=== PATIENT | male | born 1975 | race Native Hawaiian/Other Pacific Islander ===

== ENCOUNTER 2017-02-17 19:10 | Inpatient (IN) | payer OTHER ==
[~2017-02-17 19:10] MED LIST: NOCURR
[2017-02-17 20:53] VITALS: BP 148/95
[2017-02-17] MEDS ORDERED: ONDANSETRON HCL 4 MG/2 ML VIAL IVP PRN (21:15)
[2017-02-17] MEDS ORDERED: CloNIDine HCL 0.1 MG TABLET PO PRN (21:15)
[2017-02-17] MEDS ORDERED: LORazepam 2 MG/ML VIAL IVP PRN (21:15)
[2017-02-17] MEDS ORDERED: OxyCODONE HCL/ACETAMINOPHEN 5-325 MG TABLET PO PRN (21:15)
[2017-02-17] MEDS ORDERED: MAGNESIUM HYDROXIDE SUSPENSION 30 ML UDCUP PO PRN (21:15)
[2017-02-17] MEDS ORDERED: ACETAMINOPHEN 325 MG TABLET PO PRN (21:15)
[2017-02-18] VITALS: BP 150/87
[2017-02-18 04:57] VITALS: BP 153/96
[2017-02-18 06:23] LABS: BASOPHILS % (AUTO) 0.6 % (0.0-2.0); EOSINOPHILS % (AUTO) 3.2 % (1.0-6.0); HEMATOCRIT 44.3 % (41-53); HEMOGLOBIN 14.2 g/dL (13.5-17.5); LYMPHOCYTES # (AUTO) 1.5 K/uL (1.0-4.8); LYMPHOCYTES % (AUTO) 21.9 % (22.0-44.0); MEAN CORPUSCULAR HEMOGLOBIN 23.1 pg (26.0-34.0); MEAN CORPUSCULAR HGB CONC 32.1 G/dL (31.0-37.0); MEAN CORPUSCULAR VOLUME 72 fL (80-100); MONOCYTES # (AUTO) 0.7 K/uL (0.1-1.0); MONOCYTES % (AUTO) 10.5 % (2.0-9.0); NEUTROPHILS # (AUTO) 4.4 K/uL (1.8-7.7); NEUTROPHILS % (AUTO) 63.8 % (40.0-70.0); PLATELET COUNT (AUTO) 236 K/uL (150-450); RED BLOOD CELL COUNT(AUTO) 6.14 MIL/uL (4.50-5.90); RED CELL DISTRIBUTION WIDTH 13.5 % (11.5-14.5); WHITE BLOOD COUNT (AUTO) 6.9 K/uL (4.5-11.0)
[2017-02-18 06:57] LABS: ALANINE AMINOTRANSFERASE 35 U/L (12-78); ALBUMIN 3.8 g/dL (3.4-5.0); ANION GAP 8 mmol/L (8-16); ASPARTATE AMINOTRANSFERASE 22 U/L (15-37); BILIRUBIN,TOTAL 1.1 mg/dL (0.1-1.0); CALCIUM, TOTAL 8.9 mg/dL (8.8-10.5); CARBON DIOXIDE 27 mmol/L (22-29); CHLORIDE 104 mmol/L (98-107); CREATININE 0.92 mg/dL (0.60-1.30); GLOMERULAR FILTR. RATE CALC > 60 mL/min (>60); POTASSIUM 4.1 mmol/L (3.5-5.1); SODIUM SERUM 139 mmol/L (136-145); TOTAL PROTEIN, SERUM 7.3 g/dL (6.4-8.2); UREA NITROGEN, BLOOD 22 mg/dL (7-18)
[2017-02-18 08:02] VITALS: BP 138/87
[2017-02-18 08:25] LABS: RBC MORPHOLOGY COMMENT ABNORMAL RBC MORPH
[2017-02-18] MEDS ORDERED: PANTOPRAZOLE SODIUM 40 MG DR TABLET PO SCH (09:00)
[2017-02-18] MEDS: DOCUSATE SODIUM 100 MG CAPSULE PO SCH ×2 (09:00→20:28)
[2017-02-18] MEDS ORDERED: AmLODIPine BESYLATE 5 MG TABLET PO SCH (09:00)
[2017-02-18] MEDS: METOPROLOL TARTRATE 25 MG TABLET PO SCH ×2 (09:31→20:28)
[2017-02-18] MEDS: LevETIRAcetam 500 MG TABLET PO SCH ×2 (09:31→20:28)
[2017-02-18 11:36] VITALS: BP 138/96
[2017-02-18 16:46] VITALS: BP 112/70
[2017-02-18 19:47] VITALS: BP 122/73
== END 2017-02-18 22:30 | DRG 66 ==
LOC: 5N 19:10
PROVIDERS: ADMIT Internal Medicine; ATTEND Internal Medicine
DX: I61.9 Nontraumatic intracerebral hemorrhage, unspecified (principal); I10 Essential (primary) hypertension
CPT/HCPCS: 87081; 92523; 97112; 97162; 97166; 97535

== ENCOUNTER 2017-02-18 22:45 | Inpatient (IN) | payer OTHER ==
[~2017-02-18] VITALS: Ht 177.8 cm; Wt 86.2 kg
[2017-02-18 23:00] VITALS: BP 136/86
[2017-02-18] MEDS ORDERED: CloNIDine HCL 0.1 MG TABLET PO PRN (23:45)
[2017-02-18] MEDS ORDERED: DOCUSATE SODIUM 283 MG/5 ML MINI-ENEMA PR PRN (23:45)
[2017-02-18] MEDS ORDERED: MAGNESIUM HYDROXIDE SUSPENSION 30 ML UDCUP PO PRN (23:45)
[2017-02-18] MEDS ORDERED: ONDANSETRON HCL 4 MG TABLET PO PRN (23:45)
[2017-02-18] MEDS ORDERED: ACETAMINOPHEN 325 MG TABLET PO PRN (23:45)
[2017-02-18] MEDS ORDERED: OxyCODONE HCL/ACETAMINOPHEN 5-325 MG TABLET PO PRN (23:45)
[2017-02-18] MEDS ORDERED: LORazepam 2 MG/ML VIAL IVP PRN (23:45)
[2017-02-19 01:43] LABS: APPEARANCE,URINE CLEAR (CLEAR); GLUCOSE, URINE (UA) NEGATIVE (NEGATIVE); KETONES,URINE NEGATIVE (NEGATIVE); LEUKOCYTE ESTERASE ,URINE NEGATIVE (NEGATIVE); OCCULT BLOOD,URINE NEGATIVE (NEGATIVE); PROTEIN,URINE NEGATIVE (NEGATIVE)
[2017-02-19 01:48] LABS: ADD UA MICROSCOPIC NO
[2017-02-19 07:02] LABS: BASOPHILS % (AUTO) 0.4 % (0.0-2.0); EOSINOPHILS % (AUTO) 2.3 % (1.0-6.0); HEMATOCRIT 42.8 % (41-53); HEMOGLOBIN 13.8 g/dL (13.5-17.5); LYMPHOCYTES # (AUTO) 1.9 K/uL (1.0-4.8); LYMPHOCYTES % (AUTO) 26.7 % (22.0-44.0); MEAN CORPUSCULAR HEMOGLOBIN 23.1 pg (26.0-34.0); MEAN CORPUSCULAR HGB CONC 32.1 G/dL (31.0-37.0); MEAN CORPUSCULAR VOLUME 72 fL (80-100); MONOCYTES # (AUTO) 0.5 K/uL (0.1-1.0); MONOCYTES % (AUTO) 7.7 % (2.0-9.0); NEUTROPHILS # (AUTO) 4.4 K/uL (1.8-7.7); NEUTROPHILS % (AUTO) 62.9 % (40.0-70.0); PLATELET COUNT (AUTO) 248 K/uL (150-450); RED BLOOD CELL COUNT(AUTO) 5.96 MIL/uL (4.50-5.90); RED CELL DISTRIBUTION WIDTH 14.1 % (11.5-14.5)
[2017-02-19 07:19] LABS: ALANINE AMINOTRANSFERASE 40 U/L (12-78); ALBUMIN 3.7 g/dL (3.4-5.0); ANION GAP 7 mmol/L (8-16); ASPARTATE AMINOTRANSFERASE 22 U/L (15-37); BILIRUBIN,TOTAL 0.6 mg/dL (0.1-1.0); CALCIUM, TOTAL 8.8 mg/dL (8.8-10.5); CARBON DIOXIDE 28 mmol/L (22-29); CHLORIDE 107 mmol/L (98-107); CREATININE 0.99 mg/dL (0.60-1.30); GLOMERULAR FILTR. RATE CALC > 60 mL/min (>60); POTASSIUM 4.2 mmol/L (3.5-5.1); SODIUM SERUM 142 mmol/L (136-145); TOTAL PROTEIN, SERUM 7.2 g/dL (6.4-8.2); UREA NITROGEN, BLOOD 27 mg/dL (7-18)
[2017-02-19 07:45] VITALS: BP 138/80
[2017-02-19 08:31] LABS: RBC MORPHOLOGY COMMENT ABNORMAL RBC MORPH
[2017-02-19] MEDS: AmLODIPine BESYLATE 5 MG TABLET PO SCH (09:48)
[2017-02-19] MEDS: LevETIRAcetam 500 MG TABLET PO SCH ×2 (09:48→21:28)
[2017-02-19] MEDS: PANTOPRAZOLE SODIUM 40 MG DR TABLET PO SCH (09:48)
[2017-02-19] MEDS: METOPROLOL TARTRATE 25 MG TABLET PO SCH ×2 (09:48→21:28)
[2017-02-19] MEDS: DOCUSATE SODIUM 100 MG CAPSULE PO SCH ×2 (09:48→21:28)
[2017-02-19 16:13] VITALS: BP 135/73
[2017-02-19] MEDS ORDERED: SENNA 187 MG TABLET PO SCH (21:00)
[2017-02-19 21:26] VITALS: BP 132/66
[2017-02-19] MEDS: 0.9% SODIUM CHLORIDE 10 ML SYRINGE IVP SCH (23:17)
[2017-02-20] VITALS: BP 146/76
[2017-02-20] MEDS: 0.9% SODIUM CHLORIDE 10 ML SYRINGE IVP SCH (08:00)
[2017-02-20 09:09] VITALS: BP 136/74
[2017-02-20] MEDS: LevETIRAcetam 500 MG TABLET PO SCH ×2 (09:34→21:29)
[2017-02-20] MEDS: AmLODIPine BESYLATE 5 MG TABLET PO SCH (09:34)
[2017-02-20] MEDS: PANTOPRAZOLE SODIUM 40 MG DR TABLET PO SCH (09:34)
[2017-02-20] MEDS: DOCUSATE SODIUM 250 MG CAPSULE PO SCH ×2 (09:34→21:29)
[2017-02-20] MEDS: METOPROLOL TARTRATE 25 MG TABLET PO SCH ×2 (09:34→21:29)
[2017-02-20 16:03] VITALS: BP 135/82
[2017-02-20 21:28] VITALS: BP 140/76
[2017-02-20] MEDS: SENNA 187 MG TABLET PO SCH (21:29)
[2017-02-20 23:35] VITALS: BP 109/71
[2017-02-21 04:15] VITALS: BP 138/76
[2017-02-21 07:45] VITALS: BP 143/67
[2017-02-21 08:01] VITALS: BP 143/67
[2017-02-21] MEDS: AmLODIPine BESYLATE 5 MG TABLET PO SCH (08:44)
[2017-02-21] MEDS: LevETIRAcetam 500 MG TABLET PO SCH ×2 (08:44→20:36)
[2017-02-21] MEDS: METOPROLOL TARTRATE 25 MG TABLET PO SCH ×2 (08:44→20:36)
[2017-02-21] MEDS: DOCUSATE SODIUM 250 MG CAPSULE PO SCH ×2 (08:44→20:36)
[2017-02-21] MEDS: PANTOPRAZOLE SODIUM 40 MG DR TABLET PO SCH (08:44)
[2017-02-21 16:26] VITALS: BP 151/87
[2017-02-21 20:34] VITALS: BP 151/77
[2017-02-21] MEDS: SENNA 187 MG TABLET PO SCH (20:36)
[2017-02-21 23:15] VITALS: BP 132/75
[2017-02-22 08:30] VITALS: BP 151/88
[2017-02-22] MEDS: LevETIRAcetam 500 MG TABLET PO SCH ×2 (08:50→20:44)
[2017-02-22] MEDS: DOCUSATE SODIUM 250 MG CAPSULE PO SCH ×2 (08:50→20:44)
[2017-02-22] MEDS: AmLODIPine BESYLATE 5 MG TABLET PO SCH (08:50)
[2017-02-22] MEDS: METOPROLOL TARTRATE 25 MG TABLET PO SCH ×2 (08:50→20:43)
[2017-02-22] MEDS: PANTOPRAZOLE SODIUM 40 MG DR TABLET PO SCH (08:51)
[2017-02-22 16:20] VITALS: BP 145/60
[2017-02-22 16:25] VITALS: BP 147/87
[2017-02-22 20:21] VITALS: BP 163/95
[2017-02-22] MEDS: SENNA 187 MG TABLET PO SCH (20:44)
[2017-02-22 23:44] VITALS: BP 148/83
[2017-02-23 08:12] VITALS: BP 161/86
[2017-02-23] MEDS: AmLODIPine BESYLATE 5 MG TABLET PO SCH (08:23)
[2017-02-23] MEDS: DOCUSATE SODIUM 250 MG CAPSULE PO SCH ×2 (08:23→20:28)
[2017-02-23] MEDS: LevETIRAcetam 500 MG TABLET PO SCH ×2 (08:23→20:29)
[2017-02-23] MEDS: PANTOPRAZOLE SODIUM 40 MG DR TABLET PO SCH (08:23)
[2017-02-23] MEDS: METOPROLOL TARTRATE 25 MG TABLET PO SCH ×2 (08:23→20:29)
[2017-02-23 10:40] VITALS: BP 141/80
[2017-02-23 15:16] VITALS: BP 158/81
[2017-02-23 20:22] VITALS: BP 157/96
[2017-02-23] MEDS: SENNA 187 MG TABLET PO SCH (20:28)
[2017-02-23 23:34] VITALS: BP 147/79
[2017-02-24 07:53] VITALS: BP 140/82
[2017-02-24] MEDS: METOPROLOL TARTRATE 25 MG TABLET PO SCH ×2 (10:01→21:59)
[2017-02-24] MEDS: DOCUSATE SODIUM 250 MG CAPSULE PO SCH (10:01)
[2017-02-24] MEDS: AmLODIPine BESYLATE 5 MG TABLET PO SCH (10:01)
[2017-02-24] MEDS: PANTOPRAZOLE SODIUM 40 MG DR TABLET PO SCH (10:01)
[2017-02-24 16:02] VITALS: BP 134/84
[2017-02-24 21:45] VITALS: BP 152/98
[2017-02-24] MEDS: MIRTAZAPINE 15 MG TABLET PO SCH (21:59)
[2017-02-24] MEDS: SENNA 187 MG TABLET PO SCH (21:59)
[2017-02-24 23:38] VITALS: BP 145/77
[2017-02-25 08:30] VITALS: BP 150/88
[2017-02-25] MEDS: DOCUSATE SODIUM 250 MG CAPSULE PO SCH (08:48)
[2017-02-25] MEDS: AmLODIPine BESYLATE 5 MG TABLET PO SCH (08:48)
[2017-02-25] MEDS: FAMOTIDINE 20 MG TABLET PO SCH (08:48)
[2017-02-25] MEDS: METOPROLOL TARTRATE 25 MG TABLET PO SCH ×2 (09:01→21:04)
[2017-02-25 15:30] VITALS: BP 117/64
[2017-02-25 20:55] VITALS: BP 140/73
[2017-02-25] MEDS: MIRTAZAPINE 15 MG TABLET PO SCH (21:04)
[2017-02-25] MEDS: SENNA 187 MG TABLET PO SCH (21:04)
[2017-02-25 23:43] VITALS: BP 143/79
[2017-02-26 07:01] VITALS: BP 133/86
[2017-02-26] MEDS: FAMOTIDINE 20 MG TABLET PO SCH (07:45)
[2017-02-26] MEDS: DOCUSATE SODIUM 250 MG CAPSULE PO SCH (07:45)
[2017-02-26] MEDS: AmLODIPine BESYLATE 5 MG TABLET PO SCH (07:45)
[2017-02-26] MEDS: METOPROLOL TARTRATE 25 MG TABLET PO SCH ×2 (07:45→20:49)
[2017-02-26 15:56] VITALS: BP 141/94
[2017-02-26 20:48] VITALS: BP 143/80
[2017-02-26] MEDS: SENNA 187 MG TABLET PO SCH (20:49)
[2017-02-26] MEDS: MIRTAZAPINE 15 MG TABLET PO SCH (20:50)
[2017-02-27 05:00] VITALS: BP 161/82
[2017-02-27 06:00] VITALS: BP 147/91
[2017-02-27 07:12] VITALS: BP 149/94
[2017-02-27] MEDS: METOPROLOL TARTRATE 25 MG TABLET PO SCH ×2 (07:33→20:19)
[2017-02-27] MEDS: AmLODIPine BESYLATE 5 MG TABLET PO SCH (07:34)
[2017-02-27] MEDS: DOCUSATE SODIUM 250 MG CAPSULE PO SCH (07:34)
[2017-02-27] MEDS: FAMOTIDINE 20 MG TABLET PO SCH (07:34)
[2017-02-27 15:18] VITALS: BP 135/68
[2017-02-27 20:18] VITALS: BP 142/74
[2017-02-27] MEDS: MIRTAZAPINE 15 MG TABLET PO SCH (20:19)
[2017-02-27] MEDS: SENNA 187 MG TABLET PO SCH (20:19)
[2017-02-27 23:15] VITALS: BP 140/75
[2017-02-28 08:30] VITALS: BP 149/91
[2017-02-28] MEDS: DOCUSATE SODIUM 250 MG CAPSULE PO SCH (09:02)
[2017-02-28] MEDS: FAMOTIDINE 20 MG TABLET PO SCH (09:02)
[2017-02-28] MEDS: METOPROLOL TARTRATE 25 MG TABLET PO SCH ×2 (09:02→20:47)
[2017-02-28] MEDS: AmLODIPine BESYLATE 5 MG TABLET PO SCH (09:02)
[2017-02-28 15:01] VITALS: BP 153/92
[2017-02-28 20:40] VITALS: BP 145/99
[2017-02-28] MEDS: MIRTAZAPINE 15 MG TABLET PO SCH (20:47)
[2017-02-28] MEDS: SENNA 187 MG TABLET PO SCH (20:47)
[2017-02-28 23:30] VITALS: BP 144/91
[2017-03-01 07:13] VITALS: BP 137/66
[2017-03-01] MEDS: METOPROLOL TARTRATE 25 MG TABLET PO SCH ×2 (08:17→20:25)
[2017-03-01] MEDS: FAMOTIDINE 20 MG TABLET PO SCH (08:17)
[2017-03-01] MEDS: DOCUSATE SODIUM 250 MG CAPSULE PO SCH (08:17)
[2017-03-01] MEDS: AmLODIPine BESYLATE 5 MG TABLET PO SCH (08:17)
[2017-03-01 15:16] VITALS: BP 134/76
[2017-03-01 20:14] VITALS: BP 158/94
[2017-03-01] MEDS: SENNA 187 MG TABLET PO SCH (20:25)
[2017-03-01] MEDS: MIRTAZAPINE 15 MG TABLET PO SCH (20:25)
[2017-03-02 06:00] VITALS: BP 142/74
[2017-03-02 08:30] VITALS: BP 146/87
[2017-03-02] MEDS: METOPROLOL TARTRATE 25 MG TABLET PO SCH ×2 (08:50→21:20)
[2017-03-02] MEDS: AmLODIPine BESYLATE 5 MG TABLET PO SCH (08:50)
[2017-03-02] MEDS: FAMOTIDINE 20 MG TABLET PO SCH (08:50)
[2017-03-02] MEDS: DOCUSATE SODIUM 250 MG CAPSULE PO SCH (08:50)
[2017-03-02 16:20] VITALS: BP 133/95
[2017-03-02 21:13] VITALS: BP 141/62
[2017-03-02] MEDS: SENNA 187 MG TABLET PO SCH (21:19)
[2017-03-02] MEDS: MIRTAZAPINE 15 MG TABLET PO SCH (21:20)
[2017-03-03] VITALS: BP 134/74
[2017-03-03 07:12] VITALS: BP 139/88
[2017-03-03] MEDS: AmLODIPine BESYLATE 10 MG TABLET PO SCH (07:59)
[2017-03-03] MEDS: METOPROLOL TARTRATE 25 MG TABLET PO SCH ×2 (07:59→19:56)
[2017-03-03] MEDS: DOCUSATE SODIUM 250 MG CAPSULE PO SCH (07:59)
[2017-03-03] MEDS: FAMOTIDINE 20 MG TABLET PO SCH (07:59)
[2017-03-03 15:45] VITALS: BP 141/83
[2017-03-03] MEDS: SENNA 187 MG TABLET PO SCH (19:56)
[2017-03-03] MEDS: MIRTAZAPINE 15 MG TABLET PO SCH (19:56)
[2017-03-04 05:00] VITALS: BP 136/54
[2017-03-04 08:00] VITALS: BP 149/97
[2017-03-04] MEDS: DOCUSATE SODIUM 250 MG CAPSULE PO SCH (08:09)
[2017-03-04] MEDS: AmLODIPine BESYLATE 10 MG TABLET PO SCH (08:09)
[2017-03-04] MEDS: FAMOTIDINE 20 MG TABLET PO SCH (08:09)
[2017-03-04] MEDS: METOPROLOL TARTRATE 25 MG TABLET PO SCH (08:09)
[2017-03-04 15:40] VITALS: BP 146/61
[2017-03-04] MEDS: MIRTAZAPINE 15 MG TABLET PO SCH (19:45)
[2017-03-04] MEDS: SENNA 187 MG TABLET PO SCH (19:45)
[2017-03-04 23:30] VITALS: BP 138/76
[2017-03-05 07:41] VITALS: BP 141/93
[2017-03-05] MEDS: FAMOTIDINE 20 MG TABLET PO SCH (08:18)
[2017-03-05] MEDS: HYDROCHLOROTHIAZIDE 25 MG TABLET PO SCH (08:18)
[2017-03-05] MEDS: DOCUSATE SODIUM 250 MG CAPSULE PO SCH (08:18)
[2017-03-05 08:52] VITALS: BP 129/89
[2017-03-05 15:04] VITALS: BP 155/91
[2017-03-05 16:10] VITALS: BP 146/103
[2017-03-05] MEDS: AmLODIPine BESYLATE 10 MG TABLET PO SCH (16:13)
[2017-03-05] MEDS: MIRTAZAPINE 15 MG TABLET PO SCH (20:50)
[2017-03-05] MEDS: SENNA 187 MG TABLET PO SCH (20:50)
[2017-03-06 05:15] VITALS: BP 149/97
[2017-03-06] MEDS: DOCUSATE SODIUM 250 MG CAPSULE PO SCH (07:14)
[2017-03-06] MEDS: FAMOTIDINE 20 MG TABLET PO SCH (07:14)
[2017-03-06] MEDS: HYDROCHLOROTHIAZIDE 25 MG TABLET PO SCH (07:14)
[2017-03-06 07:15] VITALS: BP 138/80
[2017-03-06 15:19] VITALS: BP 153/98
[2017-03-06] MEDS: AmLODIPine BESYLATE 10 MG TABLET PO SCH (15:43)
[2017-03-06] MEDS: MIRTAZAPINE 15 MG TABLET PO SCH (20:09)
[2017-03-06] MEDS: SENNA 187 MG TABLET PO SCH (20:10)
[2017-03-07 00:14] VITALS: BP 112/62
[2017-03-07 07:16] VITALS: BP 155/90
[2017-03-07] MEDS: DOCUSATE SODIUM 250 MG CAPSULE PO SCH (09:22)
[2017-03-07] MEDS: HYDROCHLOROTHIAZIDE 25 MG TABLET PO SCH (09:22)
[2017-03-07] MEDS: FAMOTIDINE 20 MG TABLET PO SCH (09:22)
[2017-03-07 12:10] VITALS: BP 149/87
[2017-03-07 15:28] VITALS: BP 155/114
[2017-03-07] MEDS: AmLODIPine BESYLATE 10 MG TABLET PO SCH (16:41)
[2017-03-07] MEDS: SENNA 187 MG TABLET PO SCH (20:01)
[2017-03-07] MEDS: MIRTAZAPINE 15 MG TABLET PO SCH (20:01)
[2017-03-07 20:42] VITALS: BP 148/74
[2017-03-08] VITALS (7 sets, daily range): BP systolic 128–153; BP diastolic 78–94
[2017-03-08 06:46] LABS: ANION GAP 7 mmol/L (8-16); CALCIUM, TOTAL 9.3 mg/dL (8.8-10.5); CARBON DIOXIDE 34 mmol/L (22-29); CHLORIDE 101 mmol/L (98-107); CREATININE 0.97 mg/dL (0.60-1.30); GLOMERULAR FILTR. RATE CALC > 60 mL/min (>60); POTASSIUM 3.3 mmol/L (3.5-5.1); SODIUM SERUM 142 mmol/L (136-145); UREA NITROGEN, BLOOD 16 mg/dL (7-18)
[2017-03-08] MEDS: HYDROCHLOROTHIAZIDE 25 MG TABLET PO SCH (08:07)
[2017-03-08] MEDS: DOCUSATE SODIUM 250 MG CAPSULE PO SCH (08:07)
[2017-03-08] MEDS: FAMOTIDINE 20 MG TABLET PO SCH (08:07)
[2017-03-08] MEDS ORDERED: VALSARTAN 80 MG TABLET PO SCH (09:00)
[2017-03-08] MEDS ORDERED: POTASSIUM CHLORIDE 20 MEQ ER TABLET PO ONE (09:15)
[2017-03-08] MEDS ORDERED: AmLODIPine BESYLATE 10 MG TABLET PO ONE (15:45)
[2017-03-08] MEDS: SENNA 187 MG TABLET PO SCH (20:51)
[2017-03-08] MEDS: MIRTAZAPINE 15 MG TABLET PO SCH (20:51)
[2017-03-09] VITALS (8 sets, daily range): BP systolic 119–140; BP diastolic 75–92
[2017-03-09] MEDS: POTASSIUM CHLORIDE 20 MEQ ER TABLET PO SCH (08:23)
[2017-03-09] MEDS: FAMOTIDINE 20 MG TABLET PO SCH (08:23)
[2017-03-09] MEDS: AmLODIPine BESYLATE 10 MG TABLET PO SCH (08:24)
[2017-03-09] MEDS: DOCUSATE SODIUM 250 MG CAPSULE PO SCH (08:24)
[2017-03-09] MEDS: HYDROCHLOROTHIAZIDE 25 MG TABLET PO SCH (11:51)
[2017-03-09] MEDS ORDERED: INFLUENZA VIRUS VACCINE QVS 2017-18 (3YR+)/PF 60 MCG/0.5 ML SYRINGE IM ONE (13:15)
[2017-03-09] MEDS ORDERED: VALSARTAN 80 MG TABLET PO SCH (16:00)
[2017-03-09] MEDS: SENNA 187 MG TABLET PO SCH (20:39)
[2017-03-09] MEDS: MIRTAZAPINE 15 MG TABLET PO SCH (20:40)
[2017-03-10] VITALS (7 sets, daily range): BP systolic 125–145; BP diastolic 70–97
[2017-03-10] MEDS: AmLODIPine BESYLATE 10 MG TABLET PO SCH (08:26)
[2017-03-10] MEDS: DOCUSATE SODIUM 250 MG CAPSULE PO SCH (08:26)
[2017-03-10] MEDS: FAMOTIDINE 20 MG TABLET PO SCH (08:26)
[2017-03-10] MEDS: POTASSIUM CHLORIDE 20 MEQ ER TABLET PO SCH (08:27)
[2017-03-10] MEDS ORDERED: POTASSIUM CHLORIDE 10 MEQ ER TABLET PO ONE (09:45)
[2017-03-10] MEDS: HYDROCHLOROTHIAZIDE 25 MG TABLET PO SCH (12:46)
[2017-03-10] MEDS ORDERED: VALSARTAN 80 MG TABLET PO SCH (16:00)
[2017-03-10] MEDS: SENNA 187 MG TABLET PO SCH (20:18)
[2017-03-10] MEDS: MIRTAZAPINE 15 MG TABLET PO SCH (20:19)
[2017-03-11] VITALS (8 sets, daily range): BP systolic 110–141; BP diastolic 67–85
[2017-03-11] MEDS: AmLODIPine BESYLATE 10 MG TABLET PO SCH (08:14)
[2017-03-11] MEDS: FAMOTIDINE 20 MG TABLET PO SCH (08:14)
[2017-03-11] MEDS: POTASSIUM CHLORIDE 20 MEQ ER TABLET PO SCH (08:14)
[2017-03-11] MEDS: DOCUSATE SODIUM 250 MG CAPSULE PO SCH (08:14)
[2017-03-11] MEDS: HYDROCHLOROTHIAZIDE 25 MG TABLET PO SCH (12:31)
[2017-03-11] MEDS: VALSARTAN 160 MG TABLET PO SCH (16:46)
[2017-03-11] MEDS: MIRTAZAPINE 15 MG TABLET PO SCH (20:46)
[2017-03-11] MEDS: SENNA 187 MG TABLET PO SCH (20:46)
[2017-03-12] VITALS (8 sets, daily range): BP systolic 111–152; BP diastolic 59–82
[2017-03-12] MEDS: POTASSIUM CHLORIDE 20 MEQ ER TABLET PO SCH (08:19)
[2017-03-12] MEDS: FAMOTIDINE 20 MG TABLET PO SCH (08:19)
[2017-03-12] MEDS: DOCUSATE SODIUM 250 MG CAPSULE PO SCH (08:19)
[2017-03-12] MEDS: AmLODIPine BESYLATE 10 MG TABLET PO SCH (08:19)
[2017-03-12] MEDS: HYDROCHLOROTHIAZIDE 25 MG TABLET PO SCH (11:34)
[2017-03-12] MEDS: VALSARTAN 160 MG TABLET PO SCH (16:10)
[2017-03-12] MEDS: SENNA 187 MG TABLET PO SCH (20:49)
[2017-03-12] MEDS: MIRTAZAPINE 15 MG TABLET PO SCH (20:49)
[2017-03-13 04:30] VITALS: BP 140/85
[2017-03-13 07:00] VITALS: BP 133/88
[2017-03-13] MEDS: FAMOTIDINE 20 MG TABLET PO SCH (07:33)
[2017-03-13] MEDS: AmLODIPine BESYLATE 10 MG TABLET PO SCH (07:33)
[2017-03-13] MEDS: DOCUSATE SODIUM 250 MG CAPSULE PO SCH (07:33)
[2017-03-13] MEDS: POTASSIUM CHLORIDE 20 MEQ ER TABLET PO SCH (07:33)
[2017-03-13 12:30] VITALS: BP 139/80
[2017-03-13] MEDS: HYDROCHLOROTHIAZIDE 25 MG TABLET PO SCH (12:42)
[2017-03-13 15:18] VITALS: BP 136/91
[2017-03-13 16:19] VITALS: BP 135/77
[2017-03-13] MEDS: VALSARTAN 160 MG TABLET PO SCH (16:22)
[2017-03-13] MEDS: SENNA 187 MG TABLET PO SCH (21:09)
[2017-03-13] MEDS: MIRTAZAPINE 15 MG TABLET PO SCH (21:09)
[2017-03-14 02:09] VITALS: BP 149/96
[2017-03-14 07:18] VITALS: BP 134/77
[2017-03-14] MEDS: DOCUSATE SODIUM 250 MG CAPSULE PO SCH (08:04)
[2017-03-14] MEDS: AmLODIPine BESYLATE 10 MG TABLET PO SCH (08:04)
[2017-03-14] MEDS: FAMOTIDINE 20 MG TABLET PO SCH (08:04)
[2017-03-14] MEDS: POTASSIUM CHLORIDE 20 MEQ ER TABLET PO SCH (08:04)
[2017-03-14] MEDS: HYDROCHLOROTHIAZIDE 25 MG TABLET PO SCH (12:26)
[2017-03-14] MEDS: VALSARTAN 160 MG TABLET PO SCH (16:13)
[2017-03-14 19:54] VITALS: BP 136/75
[2017-03-14] MEDS: MIRTAZAPINE 15 MG TABLET PO SCH (20:53)
[2017-03-14] MEDS: SENNA 187 MG TABLET PO SCH (20:53)
[2017-03-15 03:03] VITALS: BP 140/85
[2017-03-15 07:02] VITALS: BP 142/87
[2017-03-15] MEDS: FAMOTIDINE 20 MG TABLET PO SCH (08:00)
[2017-03-15] MEDS: POTASSIUM CHLORIDE 20 MEQ ER TABLET PO SCH (08:00)
[2017-03-15] MEDS: DOCUSATE SODIUM 250 MG CAPSULE PO SCH (08:00)
[2017-03-15] MEDS: AmLODIPine BESYLATE 10 MG TABLET PO SCH (08:01)
[2017-03-15 12:23] VITALS: BP 118/77
[2017-03-15] MEDS: HYDROCHLOROTHIAZIDE 25 MG TABLET PO SCH (12:30)
[2017-03-15 16:45] VITALS: BP 139/66
[2017-03-15] MEDS: VALSARTAN 160 MG TABLET PO SCH (16:51)
[2017-03-15] MEDS: SENNA 187 MG TABLET PO SCH (20:56)
[2017-03-15] MEDS: MIRTAZAPINE 15 MG TABLET PO SCH (20:56)
[2017-03-15 23:28] VITALS: BP 100/56
[2017-03-16 07:14] VITALS: BP 132/72
[2017-03-16] MEDS: AmLODIPine BESYLATE 10 MG TABLET PO SCH (08:16)
[2017-03-16] MEDS: POTASSIUM CHLORIDE 20 MEQ ER TABLET PO SCH (08:17)
[2017-03-16] MEDS: DOCUSATE SODIUM 250 MG CAPSULE PO SCH (08:17)
[2017-03-16] MEDS: FAMOTIDINE 20 MG TABLET PO SCH (08:17)
[2017-03-16] MEDS: HYDROCHLOROTHIAZIDE 25 MG TABLET PO SCH (12:19)
[2017-03-16 15:08] VITALS: BP 125/63
[2017-03-16] MEDS: VALSARTAN 160 MG TABLET PO SCH (16:04)
[2017-03-16] MEDS: SENNA 187 MG TABLET PO SCH (20:58)
[2017-03-16] MEDS: MIRTAZAPINE 15 MG TABLET PO SCH (20:58)
[2017-03-16 23:15] VITALS: BP 119/77
[2017-03-17 07:08] VITALS: BP 127/79
[2017-03-17] MEDS: POTASSIUM CHLORIDE 20 MEQ ER TABLET PO SCH (07:46)
[2017-03-17] MEDS: FAMOTIDINE 20 MG TABLET PO SCH (07:47)
[2017-03-17] MEDS: DOCUSATE SODIUM 250 MG CAPSULE PO SCH (07:47)
[2017-03-17] MEDS: AmLODIPine BESYLATE 10 MG TABLET PO SCH (07:47)
[2017-03-17 12:23] VITALS: BP 143/92
[2017-03-17] MEDS: HYDROCHLOROTHIAZIDE 25 MG TABLET PO SCH (12:23)
[2017-03-17 15:30] VITALS: BP 139/85
[2017-03-17] MEDS: VALSARTAN 160 MG TABLET PO SCH (16:16)
[2017-03-17] MEDS: SENNA 187 MG TABLET PO SCH (20:34)
[2017-03-17] MEDS: MIRTAZAPINE 15 MG TABLET PO SCH (20:35)
[2017-03-18 03:33] VITALS: BP 124/84
[2017-03-18 07:37] VITALS: BP 141/89
[2017-03-18] MEDS: POTASSIUM CHLORIDE 20 MEQ ER TABLET PO SCH (08:18)
[2017-03-18] MEDS: FAMOTIDINE 20 MG TABLET PO SCH (08:18)
[2017-03-18] MEDS: AmLODIPine BESYLATE 10 MG TABLET PO SCH (08:18)
[2017-03-18] MEDS: DOCUSATE SODIUM 250 MG CAPSULE PO SCH (08:28)
[2017-03-18 12:39] VITALS: BP 121/84
[2017-03-18] MEDS: HYDROCHLOROTHIAZIDE 25 MG TABLET PO SCH (12:41)
[2017-03-18 15:43] VITALS: BP 135/79
[2017-03-18] MEDS: VALSARTAN 160 MG TABLET PO SCH (15:45)
[2017-03-18] MEDS: MIRTAZAPINE 15 MG TABLET PO SCH (20:03)
[2017-03-18] MEDS: SENNA 187 MG TABLET PO SCH (20:03)
[2017-03-19 02:00] VITALS: BP 145/79
[2017-03-19 07:13] VITALS: BP 124/77
[2017-03-19] MEDS: DOCUSATE SODIUM 250 MG CAPSULE PO SCH (07:59)
[2017-03-19] MEDS: POTASSIUM CHLORIDE 20 MEQ ER TABLET PO SCH (07:59)
[2017-03-19] MEDS: FAMOTIDINE 20 MG TABLET PO SCH (07:59)
[2017-03-19] MEDS: AmLODIPine BESYLATE 10 MG TABLET PO SCH (07:59)
[2017-03-19] MEDS: HYDROCHLOROTHIAZIDE 25 MG TABLET PO SCH (12:07)
[2017-03-19 15:24] VITALS: BP 134/80
[2017-03-19] MEDS: VALSARTAN 160 MG TABLET PO SCH (15:47)
[2017-03-19] MEDS: SENNA 187 MG TABLET PO SCH (20:35)
[2017-03-19] MEDS: MIRTAZAPINE 15 MG TABLET PO SCH (20:35)
[2017-03-20 05:01] VITALS: BP 122/88
[2017-03-20 07:39] VITALS: BP 130/78
[2017-03-20] MEDS: AmLODIPine BESYLATE 10 MG TABLET PO SCH (09:07)
[2017-03-20] MEDS: DOCUSATE SODIUM 250 MG CAPSULE PO SCH (09:07)
[2017-03-20] MEDS: POTASSIUM CHLORIDE 20 MEQ ER TABLET PO SCH (09:07)
[2017-03-20] MEDS: FAMOTIDINE 20 MG TABLET PO SCH (09:07)
[2017-03-20 11:55] VITALS: BP 132/80
[2017-03-20] MEDS: HYDROCHLOROTHIAZIDE 25 MG TABLET PO SCH (11:56)
[2017-03-20 15:32] VITALS: BP 130/82
[2017-03-20] MEDS: VALSARTAN 160 MG TABLET PO SCH (16:17)
[2017-03-20] MEDS: MIRTAZAPINE 15 MG TABLET PO SCH (20:13)
[2017-03-20] MEDS: SENNA 187 MG TABLET PO SCH (20:13)
[2017-03-21 04:30] VITALS: BP 132/80
[2017-03-21 07:07] VITALS: BP 127/85
[2017-03-21] MEDS: DOCUSATE SODIUM 250 MG CAPSULE PO SCH (08:12)
[2017-03-21] MEDS: AmLODIPine BESYLATE 10 MG TABLET PO SCH (08:12)
[2017-03-21] MEDS: POTASSIUM CHLORIDE 20 MEQ ER TABLET PO SCH (08:12)
[2017-03-21] MEDS: FAMOTIDINE 20 MG TABLET PO SCH (08:13)
[2017-03-21] MEDS: HYDROCHLOROTHIAZIDE 25 MG TABLET PO SCH (12:00)
[2017-03-21] MEDS: VALSARTAN 160 MG TABLET PO SCH (16:24)
[2017-03-21 20:23] VITALS: BP 121/71
[2017-03-21] MEDS: SENNA 187 MG TABLET PO SCH (20:56)
[2017-03-21] MEDS: MIRTAZAPINE 15 MG TABLET PO SCH (20:56)
[2017-03-22 05:50] VITALS: BP 129/76
[2017-03-22 07:05] VITALS: BP 139/79
[2017-03-22] MEDS: FAMOTIDINE 20 MG TABLET PO SCH (08:08)
[2017-03-22] MEDS: AmLODIPine BESYLATE 10 MG TABLET PO SCH (08:08)
[2017-03-22] MEDS: POTASSIUM CHLORIDE 20 MEQ ER TABLET PO SCH (08:08)
[2017-03-22] MEDS: DOCUSATE SODIUM 250 MG CAPSULE PO SCH (08:08)
[2017-03-22 11:53] VITALS: BP 122/74
[2017-03-22] MEDS: HYDROCHLOROTHIAZIDE 25 MG TABLET PO SCH (11:55)
[2017-03-22 16:18] VITALS: BP 139/77
[2017-03-22] MEDS: VALSARTAN 160 MG TABLET PO SCH (16:21)
[2017-03-22] MEDS: MIRTAZAPINE 15 MG TABLET PO SCH (20:55)
[2017-03-22] MEDS: SENNA 187 MG TABLET PO SCH (20:55)
[2017-03-23] MEDS ORDERED: AMLO-512 PO (03:22)
[2017-03-23] MEDS ORDERED: MIRT15 PO ×2 (03:22→11:06)
[2017-03-23] MEDS ORDERED: HYDR25TA PO ×2 (03:22→11:06)
[2017-03-23] MEDS ORDERED: VALS160T2 PO ×2 (03:22→11:06)
[2017-03-23] MEDS ORDERED: FAMO20 PO ×2 (03:22→11:06)
[2017-03-23] MEDS ORDERED: DOCU250C91 PO (03:22)
[2017-03-23] MEDS ORDERED: SENN-2 PO (03:22)
[2017-03-23 05:12] VITALS: BP 146/87
[2017-03-23 07:20] VITALS: BP 129/73
[2017-03-23] MEDS: POTASSIUM CHLORIDE 20 MEQ ER TABLET PO SCH (08:15)
[2017-03-23] MEDS: AmLODIPine BESYLATE 10 MG TABLET PO SCH (08:15)
[2017-03-23] MEDS: FAMOTIDINE 20 MG TABLET PO SCH (08:15)
[2017-03-23] MEDS: DOCUSATE SODIUM 250 MG CAPSULE PO SCH (08:16)
[2017-03-23] MEDS ORDERED: DOCU250C14 PO (11:06)
[2017-03-23] MEDS ORDERED: SENN-187 PO (11:06)
[2017-03-23] MEDS ORDERED: KDUR20 PO (11:06)
[2017-03-23] MEDS ORDERED: AMLO10TA55 PO (11:06)
== END 2017-03-23 11:30 | disposition home or self-care (01) | DRG 65 ==
LOC: 2WR 22:45
PROVIDERS: ADMIT Physical Medicine & Rehabilitation; ATTEND Physical Medicine & Rehabilitation
DX: I63.9 Cerebral infarction, unspecified (principal); G81.94 Hemiplegia, unspecified affecting left nondominant side; E87.6 Hypokalemia; W19.XXXA Unspecified fall, initial encounter; F43.21 Adjustment disorder with depressed mood; F32.9 Major depressive disorder, single episode, unspecified; I10 Essential (primary) hypertension; Y93.89 Activity, other specified; Y92.89 Other specified places as the place of occurrence of the external cause; Y99.8 Other external cause status; Z82.3 Family history of stroke; Z82.49 Family history of ischemic heart disease and other diseases of the circulatory system; Z28.21 Immunization not carried out because of patient refusal
CPT/HCPCS: 84132; 87081; 92507; 92508; 92523; 93970; 95816; 97032; 97110; 97112; 97116; 97150; 97162; 97167; 97530; 97535; 99366

== ENCOUNTER → 2017-04-21 | Outpatient (CLI) | payer OTHER ==
[~2017-04-21] MED LIST changes: +AMLO-512 PO; +AMLO10TA55 PO; +DOCU250C14 PO; +DOCU250C91 PO; +FAMO20 PO; +HYDR25TA PO; +KDUR20 PO; +MIRT15 PO; -NOCURR; +SENN-187 PO; +VALS160T2 PO
== END | disposition home or self-care (01) ==
LOC: RADMN 10:28
PROVIDERS: ATTEND Internal Medicine Geriatric Medicine
DX: I63.9 Cerebral infarction, unspecified (principal); G93.89 Other specified disorders of brain; I67.2 Cerebral atherosclerosis; Z98.890 Other specified postprocedural states
CPT/HCPCS: 70450

== ENCOUNTER → 2017-05-07 | Outpatient (CLI) | payer OTHER ==
[2017-05-07 12:24] LABS: BASOPHILS % (AUTO) 0.7 % (0.0-2.0); EOSINOPHILS % (AUTO) 0.8 % (1.0-6.0); HEMATOCRIT 39.3 % (41-53); HEMOGLOBIN 12.7 g/dL (13.5-17.5); LYMPHOCYTES # (AUTO) 1.2 K/uL (1.0-4.8); LYMPHOCYTES % (AUTO) 22.9 % (22.0-44.0); MEAN CORPUSCULAR HEMOGLOBIN 23.1 pg (26.0-34.0); MEAN CORPUSCULAR HGB CONC 32.2 G/dL (31.0-37.0); MEAN CORPUSCULAR VOLUME 72 fL (80-100); MONOCYTES # (AUTO) 0.4 K/uL (0.1-1.0); MONOCYTES % (AUTO) 6.7 % (2.0-9.0); NEUTROPHILS # (AUTO) 3.6 K/uL (1.8-7.7); NEUTROPHILS % (AUTO) 68.9 % (40.0-70.0); PLATELET COUNT (AUTO) 239 K/uL (150-450); RED BLOOD CELL COUNT(AUTO) 5.48 MIL/uL (4.50-5.90); RED CELL DISTRIBUTION WIDTH 14.7 % (11.5-14.5); WHITE BLOOD COUNT (AUTO) 5.2 K/uL (4.5-11.0)
[2017-05-07 12:38] LABS: HEMOGLOBIN A1C 5.5 % (4.5-6.2)
[2017-05-07 12:50] LABS: ALANINE AMINOTRANSFERASE 17 U/L (12-78); ALBUMIN 4.4 g/dL (3.4-5.0); ANION GAP 10 mmol/L (8-16); ASPARTATE AMINOTRANSFERASE 13 U/L (15-37); BILIRUBIN,TOTAL 0.9 mg/dL (0.1-1.0); CALCIUM, TOTAL 9.3 mg/dL (8.8-10.5); CARBON DIOXIDE 27 mmol/L (22-29); CHLORIDE 107 mmol/L (98-107); CHOL/HDL RATIO 3.2 (4.2-7.3); CREATININE 0.97 mg/dL (0.60-1.30); GLOMERULAR FILTR. RATE CALC > 60 mL/min (>60); POTASSIUM 3.6 mmol/L (3.5-5.1); SODIUM SERUM 144 mmol/L (136-145); THYROID STIMULATING HORMONE 0.76 uIU/mL (0.36-3.74); TOTAL PROTEIN, SERUM 7.7 g/dL (6.4-8.2); UREA NITROGEN, BLOOD 18 mg/dL (7-18)
== END | disposition home or self-care (01) ==
LOC: LABPV 11:42
PROVIDERS: ATTEND Internal Medicine Geriatric Medicine
DX: I63.9 Cerebral infarction, unspecified (principal)
CPT/HCPCS: 82607; 82746; 83036; 84439; 84443

== ENCOUNTER → 2017-05-21 | Outpatient (CLI) | payer OTHER ==
[~2017-05-21] MED LIST changes: +GADOBUTROL 1 MMOL/ML 10 ML VIAL IVP ONE
== END | disposition home or self-care (01) ==
LOC: RADMN 10:50
PROVIDERS: ATTEND Internal Medicine Geriatric Medicine
DX: I62.9 Nontraumatic intracranial hemorrhage, unspecified (principal); I63.9 Cerebral infarction, unspecified; Z98.890 Other specified postprocedural states
CPT/HCPCS: 70553; A9585

== ENCOUNTER 2017-09-08 16:28 | Emergency (ER) | payer OTHER ==
[~2017-09-08] VITALS: Ht 172.7 cm; Wt 88.5 kg
[~2017-09-08 16:28] MED LIST changes: -GADOBUTROL 1 MMOL/ML 10 ML VIAL IVP ONE
[2017-09-08] MEDS ORDERED: HydrALAZINE HCL 20 MG/ML VIAL IVP ONE (18:15)
[2017-09-08 18:16] LABS: BASOPHILS % (AUTO) 0.8 % (0.0-2.0); EOSINOPHILS % (AUTO) 8.2 % (1.0-6.0); HEMATOCRIT 45.3 % (41-53); HEMOGLOBIN 14.4 g/dL (13.5-17.5); LYMPHOCYTES # (AUTO) 1.5 K/uL (1.0-4.8); LYMPHOCYTES % (AUTO) 24.3 % (22.0-44.0); MEAN CORPUSCULAR HEMOGLOBIN 22.8 pg (26.0-34.0); MEAN CORPUSCULAR HGB CONC 31.8 G/dL (31.0-37.0); MEAN CORPUSCULAR VOLUME 72 fL (80-100); MONOCYTES # (AUTO) 0.7 K/uL (0.1-1.0); MONOCYTES % (AUTO) 10.7 % (2.0-9.0); NEUTROPHILS # (AUTO) 3.4 K/uL (1.8-7.7); PLATELET COUNT (AUTO) 230 K/uL (150-450); RED BLOOD CELL COUNT(AUTO) 6.31 MIL/uL (4.50-5.90); RED CELL DISTRIBUTION WIDTH 14.8 % (11.5-14.5)
[2017-09-08 18:25] LABS: ANION GAP 6 mmol/L (8-16); CALCIUM, TOTAL 9.6 mg/dL (8.8-10.5); CARBON DIOXIDE 33 mmol/L (22-29); CHLORIDE 100 mmol/L (98-107); CREATININE 1.01 mg/dL (0.60-1.30); GLOMERULAR FILTR. RATE CALC > 60 mL/min (>60); GLUCOSE,RANDOM 91 mg/dL (70-110); POTASSIUM 3.6 mmol/L (3.5-5.1); SODIUM SERUM 139 mmol/L (136-145); UREA NITROGEN, BLOOD 19 mg/dL (7-18)
[2017-09-08 18:38] LABS: B-TYPE NATRIURETIC PEPTIDE 20 pg/mL (0-100)
[2017-09-08 18:49] LABS: ALANINE AMINOTRANSFERASE 34 U/L (12-78); ALBUMIN 4.6 g/dL (3.4-5.0); ALKALINE PHOSPHATASE 60 U/L (46-116); ASPARTATE AMINOTRANSFERASE 21 U/L (15-37); BILIRUBIN,TOTAL 0.7 mg/dL (0.1-1.0); CREATINE KINASE MB 0.7 ng/mL (0-5); CREATINE KINASE, TOTAL 136 U/L (39-308); TOTAL PROTEIN, SERUM 8.2 g/dL (6.4-8.2)
[2017-09-08 19:13] LABS: APPEARANCE,URINE CLEAR (CLEAR); BILIRUBIN,URINE NEGATIVE (NEGATIVE); GLUCOSE, URINE (UA) NEGATIVE (NEGATIVE); KETONES,URINE NEGATIVE (NEGATIVE); LEUKOCYTE ESTERASE ,URINE NEGATIVE (NEGATIVE); NITRATE,URINE NEGATIVE (NEGATIVE); OCCULT BLOOD,URINE NEGATIVE (NEGATIVE); PROTEIN,URINE NEGATIVE (NEGATIVE)
[2017-09-08] MEDS ORDERED: HydrALAZINE HCL 10 MG TABLET PO ONE (19:30)
[2017-09-08 19:49] VITALS: BP 156/94
== END 2017-09-08 19:52 | disposition home or self-care (01) ==
LOC: EMS 16:29
DX: I10 Essential (primary) hypertension (principal); Z91.19 Patient's noncompliance with other medical treatment and regimen; Z86.73 Personal history of transient ischemic attack (TIA), and cerebral infarction without residual deficits
CPT/HCPCS: 36415; 71045; 80053; 81003; 82550; 82553; 83880; 84484; 85025; 93005; 96374; 99285; J0360

== ENCOUNTER → 2018-03-03 | Outpatient (CLI) | payer OTHER ==
[~2018-03-03] MED LIST changes: -AMLO-512 PO; -DOCU250C91 PO; -SENN-187 PO
[2018-03-03 10:16] LABS: BASOPHILS % (AUTO) 0.7 % (0.0-2.0); EOSINOPHILS % (AUTO) 7.4 % (1.0-6.0); HEMATOCRIT 44.5 % (41-53); HEMOGLOBIN 14.1 g/dL (13.5-17.5); LYMPHOCYTES # (AUTO) 1.3 K/uL (1.0-4.8); LYMPHOCYTES % (AUTO) 28.2 % (22.0-44.0); MEAN CORPUSCULAR HEMOGLOBIN 22.5 pg (26.0-34.0); MEAN CORPUSCULAR HGB CONC 31.7 G/dL (31.0-37.0); MEAN CORPUSCULAR VOLUME 71 fL (80-100); MONOCYTES # (AUTO) 0.4 K/uL (0.1-1.0); MONOCYTES % (AUTO) 8.4 % (2.0-9.0); NEUTROPHILS # (AUTO) 2.5 K/uL (1.8-7.7); NEUTROPHILS % (AUTO) 55.3 % (40.0-70.0); PLATELET COUNT (AUTO) 228 K/uL (150-450); RED BLOOD CELL COUNT(AUTO) 6.28 MIL/uL (4.50-5.90); RED CELL DISTRIBUTION WIDTH 14.8 % (11.5-14.5)
[2018-03-03 10:25] LABS: HEMOGLOBIN A1C 5.1 % (4.5-6.2)
[2018-03-03 10:36] LABS: ALANINE AMINOTRANSFERASE 33 U/L (12-78); ALBUMIN 4.3 g/dL (3.4-5.0); ALKALINE PHOSPHATASE 54 U/L (46-116); ANION GAP 4 mmol/L (8-16); ASPARTATE AMINOTRANSFERASE 24 U/L (15-37); BILIRUBIN,TOTAL 0.7 mg/dL (0.1-1.0); CALCIUM, TOTAL 9.4 mg/dL (8.8-10.5); CARBON DIOXIDE 32 mmol/L (22-29); CHLORIDE 104 mmol/L (98-107); CHOL/HDL RATIO 4.1 (4.2-7.3); CHOLESTEROL 210 mg/dL (131-200); CREATININE 1.01 mg/dL (0.60-1.30); GLOMERULAR FILTR. RATE CALC > 60 mL/min (>60); GLUCOSE,RANDOM 96 mg/dL (70-110); HDL CHOLESTEROL 51 mg/dL (40-60); LDL CHOL (CALC.) 139 mg/dL (0-130); SODIUM SERUM 140 mmol/L (136-145); THYROID STIMULATING HORMONE 0.94 uIU/mL (0.36-3.74); TOTAL PROTEIN, SERUM 7.8 g/dL (6.4-8.2); TRIGLYCERIDES 100 mg/dL (15-150); UREA NITROGEN, BLOOD 15 mg/dL (7-18)
== END | disposition home or self-care (01) ==
LOC: LABPV 08:41
PROVIDERS: ATTEND Internal Medicine Geriatric Medicine
DX: I10 Essential (primary) hypertension (principal); R26.9 Unspecified abnormalities of gait and mobility; I42.9 Cardiomyopathy, unspecified; Z86.73 Personal history of transient ischemic attack (TIA), and cerebral infarction without residual deficits
CPT/HCPCS: 83036; 84443

== ENCOUNTER → 2021-07-23 | Outpatient (CLI) | payer OTHER ==
[~2021-07-23] MED LIST changes: -KDUR20 PO; +MIRT-89 PO; -MIRT15 PO; +POTA-206 PO
[2021-07-24 04:06] LABS: RUBELLA AB IGG-REFLAB 8.82 index (Immune >0.99); RUBEOLA (MEASLES) IGG >300.0 AU/mL (Immune >16.4)
== END | disposition home or self-care (01) ==
LOC: LABMN 10:52
PROVIDERS: ATTEND Internal Medicine
DX: Z02.1 Encounter for pre-employment examination (principal)
CPT/HCPCS: 86706; 86735; 86762; 86765; 86787

== ENCOUNTER 2023-06-18 04:49 | Inpatient (IN) | payer OTHER ==
[~2023-06-18] VITALS: Ht 172.7 cm; Wt 70.0 kg
[2023-06-18] MEDS ORDERED: METO25XL PO (05:26)
[2023-06-18] MEDS ORDERED: LOSA-382 PO (05:26)
[2023-06-18] MEDS ORDERED: AMLO-258 PO (05:28)
[2023-06-18] MEDS ORDERED: HYDR25TA2 PO (05:28)
[2023-06-18 05:45] LABS: EOSINOPHILS % (AUTO) 0.7 % (1.0-6.0); HEMATOCRIT 40.1 % (41-53); HEMOGLOBIN 12.9 g/dL (13.5-17.5); LYMPHOCYTES # (AUTO) 1.3 K/uL (1.0-4.8); LYMPHOCYTES % (AUTO) 27.9 % (22.0-44.0); MEAN CORPUSCULAR HEMOGLOBIN 22.6 pg (26.0-34.0); MEAN CORPUSCULAR HGB CONC 32.1 G/dL (31.0-37.0); MEAN CORPUSCULAR VOLUME 70 fL (80-100); MONOCYTES # (AUTO) 0.5 K/uL (0.1-1.0); MONOCYTES % (AUTO) 10.8 % (2.0-9.0); NEUTROPHILS # (AUTO) 2.8 K/uL (1.8-7.7); NEUTROPHILS % (AUTO) 59.6 % (40.0-70.0); PLATELET COUNT (AUTO) 199 K/uL (150-450); RED CELL DISTRIBUTION WIDTH 16.9 % (11.5-14.5); WHITE BLOOD COUNT (AUTO) 4.8 K/uL (4.5-11.0)
[2023-06-18 05:56] LABS: ANION GAP 12 mmol/L (8-16); CALCIUM, TOTAL 8.8 mg/dL (8.8-10.5); CARBON DIOXIDE 25 mmol/L (22-29); CHLORIDE 103 mmol/L (98-107); CREATININE 1.06 mg/dL (0.60-1.30); GLOMERULAR FILTR. RATE CALC > 60 mL/min (>60); GLUCOSE,RANDOM 107 mg/dL (70-110); POTASSIUM 4.1 mmol/L (3.5-5.1); SODIUM SERUM 140 mmol/L (136-145); UREA NITROGEN, BLOOD 42 mg/dL (7-18)
[2023-06-18 06:02] LABS: ALANINE AMINOTRANSFERASE 87 U/L (12-78); ALBUMIN 3.9 g/dL (3.4-5.0); ALKALINE PHOSPHATASE 75 U/L (46-116); ASPARTATE AMINOTRANSFERASE 103 U/L (15-37); BILIRUBIN,TOTAL 1.1 mg/dL (0.1-1.0); TOTAL PROTEIN, SERUM 6.6 g/dL (6.4-8.2)
[2023-06-18 06:06] LABS: B-TYPE NATRIURETIC PEPTIDE 620 pg/mL (0-100)
[2023-06-18 06:35] LABS: TROPONIN I-HIGH SENSITIVITY 119 ng/L (<76)
[2023-06-18] MEDS ORDERED: NITROGLYCERIN 2% (1 GM=INCH) OINTMENT PACKET TP ONE (06:45)
[2023-06-18] MEDS ORDERED: FUROSEMIDE 40 MG/4 ML VIAL IVP ONE (06:45)
[2023-06-18 07:41] LABS: COVID AG,FIA SOURCE NASAL SWAB
[2023-06-18 08:09] LABS: SARS-COV2 (COVID) ANTIGEN,FIA Negative (Negative)
[2023-06-18] MEDS ORDERED: SODIUM CHLORIDE 0.9% 1,000 ML IV ONE (09:00)
[2023-06-18 09:04] LABS: RBC MORPHOLOGY COMMENT ABNORMAL RBC MORPH
[2023-06-18 09:21] LABS: APPEARANCE,URINE CLEAR (CLEAR); BILIRUBIN,URINE NEGATIVE (NEGATIVE); COLOR,URINE COLORLESS (YELLOW); GLUCOSE, URINE (UA) NEGATIVE (NEGATIVE); KETONES,URINE NEGATIVE (NEGATIVE); LEUKOCYTE ESTERASE ,URINE NEGATIVE (NEGATIVE); NITRATE,URINE NEGATIVE (NEGATIVE); OCCULT BLOOD,URINE NEGATIVE (NEGATIVE); PROTEIN,URINE NEGATIVE (NEGATIVE); SPECIFIC GRAVITIY, URINE 1.009 (1.003-1.030); UROBILINOGEN,URINE <=1.0 mg/dL (<=1.0)
[2023-06-18] MEDS ORDERED: IOHEXOL 350 MG/ML 100 ML VIAL ONE (09:27)
[2023-06-18] MEDS ORDERED: SODIUM CHLORIDE 0.9% 100 ML ONE (09:27)
[2023-06-18 09:37] LABS: INFLUENZA TYPE A NEGATIVE FOR TYPE A (NEGATIVE); INFLUENZA TYPE B NEGATIVE FOR TYPE B (NEGATIVE)
[2023-06-18 18:31] VITALS: BP 129/102; PULSE 94; RESP 14; TEMP 98
[2023-06-18] MEDS: METOPROLOL SUCCINATE 25 MG ER TABLET PO SCH (18:33)
[2023-06-18] MEDS: FUROSEMIDE 20 MG/2 ML VIAL IVP SCH (21:28)
[2023-06-18 22:31] VITALS: BP 135/89; PULSE 77; RESP 19; TEMP 98.1
[2023-06-18] MEDS ORDERED: MAGNESIUM HYDROXIDE SUSPENSION 30 ML UDCUP PO PRN (22:45)
[2023-06-18] MEDS ORDERED: IPRATROPIUM BROMIDE 0.5 MG/2.5 ML NEB SOLUTION NEB PRN (22:45)
[2023-06-18] MEDS ORDERED: HYDROCODONE/ACETAMINOPHEN 5-325 MG TABLET PO PRN (22:45)
[2023-06-18] MEDS ORDERED: MORPHINE SULFATE 2 MG/ML SYRINGE IVP PRN (22:45)
[2023-06-18] MEDS ORDERED: ONDANSETRON HCL 4 MG/2 ML VIAL IVP PRN (22:45)
[2023-06-18] MEDS ORDERED: ACETAMINOPHEN 325 MG TABLET PO PRN (22:45)
[2023-06-18] MEDS ORDERED: BISACODYL 10 MG RECTAL RECTAL SUPPOSITORY PR PRN (22:45)
[2023-06-18] MEDS ORDERED: ALBUTEROL SULFATE 2.5 MG/0.5 ML NEB SOLUTION NEB PRN (22:45)
[2023-06-18] MEDS ORDERED: ZOLPIDEM TARTRATE 5 MG TABLET PO PRN (22:45)
[2023-06-19] MEDS: HEPARIN SODIUM,PORCINE 5,000 UNITS/ML VIAL SQ SCH ×2 (00:52→08:27)
[2023-06-19 01:45] LABS: PH,URINE DRUG SCREEN 6.5 (5.0-8.0)
[2023-06-19 01:54] LABS: AMPHET/METH SCREEN,URINE NEGATIVE (NEGATIVE); BARBITURATE SCREEN, URINE NEGATIVE (NEGATIVE); BENZODIAZEPINES SCREEN,URINE NEGATIVE (NEGATIVE); CANNABINOID SCREEN,URINE NEGATIVE (NEGATIVE); COCAINE SCREEN,URINE NEGATIVE (NEGATIVE); METHADONE SCREEN, URINE NEGATIVE (NEGATIVE); OPIATE SCREEN,URINE NEGATIVE (NEGATIVE); PHENCYCLIDINE SCREEN,URINE NEGATIVE (NEGATIVE)
[2023-06-19 01:59] LABS: ALCOHOL, URINE DRUG SCREEN NEGATIVE (NEGATIVE)
[2023-06-19 02:31] VITALS: BP 134/94; PULSE 76; RESP 18; TEMP 98.4
[2023-06-19 04:00] VITALS: BP 130/91; PULSE 79; RESP 17; TEMP 98
[2023-06-19 06:30] LABS: BASOPHILS % (AUTO) 1.4 % (0.0-2.0); EOSINOPHILS % (AUTO) 1.3 % (1.0-6.0); HEMATOCRIT 41.9 % (41-53); HEMOGLOBIN 13.4 g/dL (13.5-17.5); LYMPHOCYTES # (AUTO) 1.3 K/uL (1.0-4.8); MEAN CORPUSCULAR HEMOGLOBIN 22.6 pg (26.0-34.0); MEAN CORPUSCULAR VOLUME 71 fL (80-100); MONOCYTES # (AUTO) 0.5 K/uL (0.1-1.0); MONOCYTES % (AUTO) 11.5 % (2.0-9.0); NEUTROPHILS # (AUTO) 2.8 K/uL (1.8-7.7); NEUTROPHILS % (AUTO) 57.8 % (40.0-70.0); PLATELET COUNT (AUTO) 188 K/uL (150-450); RED BLOOD CELL COUNT(AUTO) 5.94 MIL/uL (4.50-5.90); RED CELL DISTRIBUTION WIDTH 16.8 % (11.5-14.5); WHITE BLOOD COUNT (AUTO) 4.8 K/uL (4.5-11.0)
[2023-06-19 06:41] LABS: ANION GAP 11 mmol/L (8-16); CALCIUM, TOTAL 9.2 mg/dL (8.8-10.5); CARBON DIOXIDE 27 mmol/L (22-29); CHLORIDE 104 mmol/L (98-107); GLOMERULAR FILTR. RATE CALC > 60 mL/min (>60); GLUCOSE,RANDOM 87 mg/dL (70-110); POTASSIUM 4.1 mmol/L (3.5-5.1); SODIUM SERUM 142 mmol/L (136-145); UREA NITROGEN, BLOOD 28 mg/dL (7-18)
[2023-06-19 06:52] LABS: ALBUMIN 3.8 g/dL (3.4-5.0); BILIRUBIN,DIRECT 0.3 mg/dL (0.00-0.20); BILIRUBIN,TOTAL 1.6 mg/dL (0.1-1.0); TOTAL PROTEIN, SERUM 6.3 g/dL (6.4-8.2)
[2023-06-19 06:54] LABS: TROPONIN I-HIGH SENSITIVITY 113 ng/L (<76)
[2023-06-19] MEDS: METOPROLOL SUCCINATE 25 MG ER TABLET PO SCH (08:27)
[2023-06-19] MEDS: FUROSEMIDE 20 MG/2 ML VIAL IVP SCH (08:28)
[2023-06-19 08:53] VITALS: BP 141/108; PULSE 82; RESP 20; TEMP 98.2
[2023-06-19 08:59] LABS: RBC MORPHOLOGY COMMENT ABNORMAL RBC MORPH
[2023-06-19] MEDS ORDERED: FUROSEMIDE 20 MG TABLET PO SCH (09:00)
[2023-06-19] MEDS ORDERED: SPIRONOLACTONE 25 MG TABLET PO SCH (09:00)
[2023-06-19] MEDS ORDERED: LOSARTAN POTASSIUM 25 MG TABLET PO SCH (09:00)
[2023-06-19] MEDS ORDERED: LOSARTAN POTASSIUM 50 MG TABLET PO SCH (09:00)
[2023-06-19] MEDS ORDERED: PANTOPRAZOLE SODIUM 40 MG DR TABLET PO SCH (09:00)
[2023-06-19] MEDS ORDERED: METOPROLOL SUCCINATE 25 MG ER TABLET PO SCH ×2 (09:00)
[2023-06-19] MEDS ORDERED: AmLODIPine BESYLATE 10 MG TABLET PO SCH ×2 (09:00)
[2023-06-19] MEDS ORDERED: AmLODIPine BESYLATE 5 MG TABLET PO SCH (09:00)
[2023-06-19] MEDS ORDERED: ATORVASTATIN CALCIUM 20 MG TABLET PO SCH (09:00)
[2023-06-19] MEDS ORDERED: ASPIRIN 81 MG CHEWABLE TABLET PO SCH (09:00)
[2023-06-19] MEDS ORDERED: ATOR20TA PO (09:24)
[2023-06-19] MEDS ORDERED: FURO20 PO (09:24)
[2023-06-19] MEDS ORDERED: SPIR-37 PO (09:24)
[2023-06-19] MEDS ORDERED: LOSA-381 PO (09:25)
[2023-06-19] MEDS ORDERED: ASPI-1450 PO (09:25)
== END 2023-06-19 11:00 | disposition home or self-care (01) | DRG 291 ==
LOC: EMS 04:50 → AHU 10:06 → 5S 17:20
PROVIDERS: ADMIT Hospitalist; ATTEND Hospitalist
DX: I11.0 Hypertensive heart disease with heart failure (principal); I50.23 Acute on chronic systolic (congestive) heart failure; I69.254 Hemiplegia and hemiparesis following other nontraumatic intracranial hemorrhage affecting left non-dominant side; Z20.822 Contact with and (suspected) exposure to COVID-19; Z82.49 Family history of ischemic heart disease and other diseases of the circulatory system
CPT/HCPCS: 71045; 71275; 80048; 80053; 80061; 80076; 80307; 81003; 83880; 84484; 85025; 85379; 87804; 93005; 93306; 93970; 99291; G0378; J1644; J1940; J7030; J7050; Q9967; 36415-L1; 36415-TC

== ENCOUNTER → 2023-07-06 | Outpatient (CLI) | payer OTHER ==
[~2023-07-06] MED LIST changes: +AMLO-258 PO; -AMLO10TA55 PO; +ASPI-1450 PO; +ATOR20TA PO; +ATOR40TA28 PO; -DOCU250C14 PO; -FAMO20 PO; +FURO20 PO; -HYDR25TA PO; +LOSA-381 PO; +METO25XL PO; -MIRT-89 PO; -POTA-206 PO; +SPIR-37 PO; +TICA90TA PO; -VALS160T2 PO
== END | disposition home or self-care (01) ==
LOC: SRCNTR 14:38
PROVIDERS: ATTEND Internal Medicine
DX: I11.0 Hypertensive heart disease with heart failure (principal); I50.22 Chronic systolic (congestive) heart failure; R79.89 Other specified abnormal findings of blood chemistry; Z86.73 Personal history of transient ischemic attack (TIA), and cerebral infarction without residual deficits
CPT/HCPCS: Q3014

== ENCOUNTER 2023-07-09 05:54 | Day surgery (SDC) | payer OTHER ==
[~2023-07-09] VITALS: Ht 172.7 cm; Wt 68.9 kg
[2023-07-09] VITALS (11 sets, daily range): BP systolic 116–142; BP diastolic 72–91; PULSE 61–80
[~2023-07-09 05:54] MED LIST changes: -AMLO-258 PO; -ATOR40TA28 PO; +SODIUM CHLORIDE 0.9% 1,000 ML ONE; -TICA90TA PO
[2023-07-09 06:48] LABS: BASOPHILS % (AUTO) 0.8 % (0.0-2.0); EOSINOPHILS % (AUTO) 2.3 % (1.0-6.0); HEMATOCRIT 45.8 % (41-53); HEMOGLOBIN 14.4 g/dL (13.5-17.5); LYMPHOCYTES # (AUTO) 1.2 K/uL (1.0-4.8); LYMPHOCYTES % (AUTO) 30.6 % (22.0-44.0); MEAN CORPUSCULAR HEMOGLOBIN 22.2 pg (26.0-34.0); MEAN CORPUSCULAR HGB CONC 31.5 G/dL (31.0-37.0); MEAN CORPUSCULAR VOLUME 71 fL (80-100); MONOCYTES # (AUTO) 0.4 K/uL (0.1-1.0); MONOCYTES % (AUTO) 10.5 % (2.0-9.0); NEUTROPHILS # (AUTO) 2.2 K/uL (1.8-7.7); NEUTROPHILS % (AUTO) 55.8 % (40.0-70.0); PLATELET COUNT (AUTO) 154 K/uL (150-450); RED BLOOD CELL COUNT(AUTO) 6.48 MIL/uL (4.50-5.90); RED CELL DISTRIBUTION WIDTH 15.8 % (11.5-14.5)
[2023-07-09] MEDS ORDERED: IOHEXOL 300 MG/ML 100 ML VIAL ONE (06:55)
[2023-07-09] MEDS ORDERED: LIDOCAINE/PF 1% 30 ML VIAL ONE (06:55)
[2023-07-09] MEDS ORDERED: HEPARIN SODIUM 1000 UNITS/NS 1,000 ML ONE (06:55)
[2023-07-09] MEDS ORDERED: SODIUM BICARBONATE 50 MEQ/50 ML VIAL ONE (06:55)
[2023-07-09 07:15] LABS: INR 1.1 (0.9-1.1); PROTHROMBIN TIME 11.2 SEC (9.4-11.6)
[2023-07-09 07:26] LABS: ANION GAP 11 mmol/L (8-16); CARBON DIOXIDE 29 mmol/L (22-29); CHLORIDE 101 mmol/L (98-107); CREATININE 1.13 mg/dL (0.60-1.30); GLOMERULAR FILTR. RATE CALC > 60 mL/min (>60); GLUCOSE,RANDOM 80 mg/dL (70-110); POTASSIUM 3.8 mmol/L (3.5-5.1); SODIUM SERUM 141 mmol/L (136-145); UREA NITROGEN, BLOOD 32 mg/dL (7-18)
[2023-07-09 07:32] LABS: ALANINE AMINOTRANSFERASE 72 U/L (12-78); ALBUMIN 4.9 g/dL (3.4-5.0); ALKALINE PHOSPHATASE 56 U/L (46-116); ASPARTATE AMINOTRANSFERASE 46 U/L (15-37); BILIRUBIN,TOTAL 1.1 mg/dL (0.1-1.0); TOTAL PROTEIN, SERUM 7.9 g/dL (6.4-8.2)
[2023-07-09] MEDS ORDERED: NITROGLYCERIN 50 MG/D5% WATER 250 ML ONE (07:34)
[2023-07-09] MEDS ORDERED: MIDAZOLAM HCL 2 MG/2 ML VIAL ONE (07:34)
[2023-07-09] MEDS ORDERED: FentaNYL CITRATE PF 100 MCG/2 ML VIAL ONE (07:34)
[2023-07-09] MEDS ORDERED: HEPARIN SODIUM,PORCINE 1,000 UNITS/ML 10 ML VIAL ONE (07:35)
[2023-07-09] MEDS ORDERED: VERAPAMIL HCL 2.5 MG/ML 2 ML VIAL ONE (07:35)
[2023-07-09] MEDS: SODIUM CHLORIDE 0.9% 1,000 ML IV ONE (07:41)
[2023-07-09] MEDS: VERAPAMIL HCL 2.5 MG/ML 2 ML VIAL IARTER ONE (08:24)
[2023-07-09] MEDS: IOHEXOL 300 MG/ML 100 ML VIAL IARTER ONE (08:25)
[2023-07-09] MEDS: NITROGLYCERIN/D5W 50 MG/250 ML IV BOTTLE IARTER ONE (08:25)
[2023-07-09] MEDS: MIDAZOLAM HCL 2 MG/2 ML VIAL IVP ONE (08:26)
[2023-07-09] MEDS: LIDOCAINE 1% 30 ML/SOD BICARB 8.4% 4 ML SQ ONE (08:26)
[2023-07-09] MEDS: FentaNYL CITRATE PF 100 MCG/2 ML VIAL IVP ONE (08:28)
[2023-07-09] MEDS ORDERED: TICAGRELOR 90 MG TABLET ONE (08:28)
[2023-07-09] MEDS: HEPARIN SODIUM,PORCINE 1,000 UNITS/ML 10 ML VIAL IARTER ONE (08:31)
[2023-07-09] MEDS: HEPARIN SODIUM 1000 UNITS/NS 1,000 ML IARTER ONE (08:31)
[2023-07-09] MEDS ORDERED: ASPIRIN 325 MG TABLET ONE (08:33)
[2023-07-09] MEDS ORDERED: TICA90TA PO (08:45)
[2023-07-09] MEDS ORDERED: ATOR40TA28 PO (08:45)
[2023-07-09] MEDS: TICAGRELOR 90 MG TABLET PO ONE (08:53)
[2023-07-09] MEDS: ASPIRIN 325 MG TABLET PO ONE (08:54)
[2023-07-09] MEDS: HEPARIN SODIUM,PORCINE 1,000 UNITS/ML 10 ML VIAL IVP ONE (08:55)
[2023-07-09 09:28] LABS: CHOLESTEROL 159 mg/dL (131-200); HDL CHOLESTEROL 80 mg/dL (40-60); LDL CHOL (CALC.) 73 mg/dL (0-130); TRIGLYCERIDES 29 mg/dL (15-150)
[2023-07-09 09:55] LABS: RBC MORPHOLOGY COMMENT ABNORMAL RBC MORPH
[2023-07-09] MEDS ORDERED: TICAGRELOR 90 MG TABLET PO SCH (18:00)
[2023-07-22] MEDS ORDERED: FURO20 PO (16:22)
[2023-07-22] MEDS ORDERED: LOSA-381 PO (16:22)
[2023-07-22] MEDS ORDERED: ASPI-1450 PO (16:22)
[2023-07-22] MEDS ORDERED: METO25XL PO (16:22)
[2023-07-22] MEDS ORDERED: SPIR-37 PO (16:22)
== END 2023-07-09 16:00 | disposition home or self-care (01) ==
LOC: CATHLAB 05:54
PROVIDERS: ATTEND Internal Medicine
DX: I25.10 Atherosclerotic heart disease of native coronary artery without angina pectoris (principal); I42.9 Cardiomyopathy, unspecified; E78.00 Pure hypercholesterolemia, unspecified; I11.0 Hypertensive heart disease with heart failure; I50.9 Heart failure, unspecified; Z79.01 Long term (current) use of anticoagulants; Z72.89 Other problems related to lifestyle; Z79.899 Other long term (current) drug therapy
CPT/HCPCS: 80061; 80053; 82248; 83036; 85025; 85610; 85730; 36415; 99152; 99153; 93005; 93454; C9600; C1887; J3010; J1644 ×2; J3490 ×4; J2250; J7030; Q9967; C1874; 92920; 92928; Z7610

== ENCOUNTER → 2023-10-05 | Outpatient (CLI) | payer OTHER ==
[~2023-10-05] VITALS: Ht 172.7 cm; Wt 71.0 kg
[~2023-10-05] MED LIST changes: -ATOR20TA PO; +ATOR40TA28 PO; +ROSU20TA73 PO; -SODIUM CHLORIDE 0.9% 1,000 ML ONE; +TICA90TA PO
[2023-10-05 14:13] VITALS: BP 128/86; PULSE 66; RESP 16; TEMP 98.2; O2SAT 100
== END | disposition home or self-care (01) ==
LOC: SRCNTR 13:53
PROVIDERS: ATTEND Internal Medicine
DX: I11.0 Hypertensive heart disease with heart failure (principal); I50.22 Chronic systolic (congestive) heart failure; R79.89 Other specified abnormal findings of blood chemistry; Z86.2 Personal history of diseases of the blood and blood-forming organs and certain disorders involving the immune mechanism; Z79.899 Other long term (current) drug therapy; Z88.8 Allergy status to other drugs, medicaments and biological substances
CPT/HCPCS: G0463; Z7500

== ENCOUNTER → 2023-11-03 | Outpatient (CLI) | payer OTHER ==
[~2023-11-03] MED LIST changes: -ATOR40TA28 PO
== END | disposition home or self-care (01) ==
LOC: RADPV 08:05
PROVIDERS: ATTEND Internal Medicine
DX: I08.3 Combined rheumatic disorders of mitral, aortic and tricuspid valves (principal); I25.10 Atherosclerotic heart disease of native coronary artery without angina pectoris
CPT/HCPCS: 93306